=== PATIENT | male | born 1990 | race Caucasian/White ===

== ENCOUNTER 2023-05-03 15:04 | Emergency (ER) | payer MEDICAID ==
[~2023-05-03] VITALS: Ht 165.1 cm; Wt 73.1 kg
[2023-05-03 15:14] VITALS: PULSE 75; RESP 18
[2023-05-03 15:17] VITALS: BP 124/70; TEMP 98.3; O2SAT 100
== END 2023-05-03 17:28 | disposition left against medical advice (07) ==
LOC: ER 15:20
DX: R10.9 Unspecified abdominal pain (principal); Z53.21 Procedure and treatment not carried out due to patient leaving prior to being seen by health care provider
CPT/HCPCS: 99281